=== PATIENT | male | born 1970 | race Caucasian/White ===

== ENCOUNTER → 2016-09-23 | Outpatient (CLI) | payer BC ==
[2016-09-23 10:53] LABS: ASPARTATE AMINO TRANSFERASE 40 IU/L (21-57); BILIRUBIN,TOTAL 0.5 mg/dL (0.3-1.2); BLOOD UREA NITROGEN 24 mg/dL (7-22); CALCIUM 9.6 mg/dL (8.7-10.7); CHLORIDE 110 meq/L (98-112); CREATININE 0.8 mg/dL (0.70-1.50); EST GLOMERULAR FILTRATION > 60 (>60 ml/min/1.73m(2)); GLUCOSE 89 mg/dL (78-110); HDL CHOLESTEROL 34 mg/dL (40-150); SODIUM 143 meq/L (135-145); TRIGLYCERIDES 91 mg/dL (44-200); URIC ACID 6.2 mg/dl (3.8-8.5)
[2016-09-23 11:02] LABS: BASOPHILS # (AUTO) 0.05 10*3/UL; BASOPHILS % (AUTO) 0.5 % (0-1); EOSINOPHILS % (AUTO) 6.7 % (0-8); HEMATOCRIT 40.2 % (42.0-52.0); HEMOGLOBIN 14.3 g/dL (14.0-18.0); IMM GRAN % (AUTO) 0.2 % (0-5); IMM GRAN# (AUTO) 0.02 10*3/UL; LYMPHOCYTES # (AUTO) 2.49 10*3/uL; LYMPHOCYTES % (AUTO) 26.5 % (10-50); MEAN CORPUSCULAR HGB CONC 35.6 g/dL (33-37); MEAN PLATELET VOLUME 11.8 FL (7.4-12.2); MONOCYTES # (AUTO) 0.46 10*3/UL (0.3-0.8); MONOCYTES % (AUTO) 4.9 % (5-15); NEUTROPHILS # (AUTO) 5.74 10*3/UL; NEUTROPHILS % (AUTO) 61.2 % (50-80); RDW COEFFICIENT OF VARIATION 13.1 % (11.5-14.5); RED BLOOD COUNT 4.33 10^6/uL (4.70-6.10); WHITE BLOOD COUNT 9.39 10^3/uL (4.8-10.8)
[2016-09-23 11:19] LABS: PLATELET MORPHOLOGY COMMENT NORMAL MORPHOLOGY (NORM)
== END ==
LOC: LAB 10:20
PROVIDERS: ATTEND Internal Medicine
DX: E78.5 Hyperlipidemia, unspecified (principal); I10 Essential (primary) hypertension; M10.9 Gout, unspecified; G44.89 Other headache syndrome; F17.220 Nicotine dependence, chewing tobacco, uncomplicated; Z12.5 Encounter for screening for malignant neoplasm of prostate
CPT/HCPCS: 36415; 80053; 80061; 80201; 82550; 84443; 84550; 85025; G0103